=== PATIENT | female | born 1950 | race Caucasian/White ===

== ENCOUNTER 2017-02-17 19:48 | Emergency (ER) | payer OTHER ==
[2017-02-17 20:01] VITALS: BP 150/68; PULSE 70; TEMP 97.6; BMI 25.6
--- NOTE | 2017-02-17 21:01 | PDOC ---
History of Present Illness - General Chief Complaint: Pain Stated Complaint: SIDE PAIN Time Seen by Provider: 02/17/17 20:59 - History of Present Illness Initial Comments: 66 year old female presenting with history of HTN, left sided abdominal pain alternating with left sided back pain since yesterday afternoon. She describes the pain as a sharp 7/10 pain that either presents in her back or in her abdomen. Denies SOB, diaphoresis, nausea, vomiting, diarrhea, constipation, urinary symptoms. 02/17/17 21:43 Past History - Past Medical History Allergies/Adverse Reactions: Allergies Allergy/AdvReac Type Severity Reaction Status Date / Time No Known Allergies Allergy Verified 05/12/15 07:06 Home Medications: Ambulatory Orders Amlodipine Besylate 10 mg PO DAILY 05/12/15 Valsartan 80 mg PO DAILY 05/12/15 Aspirin [ASA -] 81 mg PO DAILY 02/17/17 Mag Hydrox/Al Hydrox/Simeth [Mylanta Suspension -] 30 ml PO Q6H PRN #1 bottle Anemia: No Asthma: No Cancer: No Cardiac Disorders: No CVA: No COPD: No CHF: No Dementia: No Diabetes: No GI Disorders: Yes (DIVERTICULOSIS 06/2013) Disorders: No HTN: Yes Hypercholesterolemia: No Liver Disease: No Seizures: No Thyroid Disease: No - Surgical History Abdominal Surgery: Yes (EMERGENCY 06/2013 [facility] PROCEDURE'S FOR ACUTE DIVERTICULOSIS) Appendectomy: No Cardiac Surgery: No Cholecystectomy: Yes GI Surgery: Yes (: Resection, colostomy bag placement and reversal) Lung Surgery: No Neurologic Surgery: No Orthopedic Surgery: No - Immunization History Immunization Up to Date: No - Suicide/Smoking/Psychosocial Hx Smoking History: Never smoked Have you smoked in the past 12 months: No Information on smoking cessation initiated: No Hx Alcohol Use: No Drug/Substance Use Hx: No Substance Use Type: None Hx Substance Use Treatment: No Review of Systems - Review of Systems Constitutional: No: Chills, Diaphoresis, Fever, Loss of Appetite HEENTM: No: Blurred Vision Respiratory: No: Cough, Shortness of Breath, SOB with Exertion, SOB at Rest, Productive cough Cardiac (ROS): No: Chest Pain, Edema, Irregular Heart Rate, Lightheadedness, Palpitations, Syncope, Chest Tightness ABD/GI: No: Constipated, Diarrhea, Difficulty Swallowing, Nausea : No: Burning, Dysuria, Discharge, Frequency Musculoskeletal: Yes: Back Pain Neurological: No: Headache, Numbness *Physical Exam - Vital Signs Last Vital Signs Temp Pulse Resp BP Pulse Ox 97.6 F 70 17 150/68 99 02/17/17 19:59 02/17/17 19:59 02/17/17 19:59 02/17/17 19:59 02/17/17 19:59 - Physical Exam General Appearance: Yes: Nourished, Appropriately Dressed. No: Apparent Distress HEENT: positive: EOMI, TRINITY, Normal Voice Neck: positive: Trachea midline, Normal Thyroid, Supple. negative: Tender, Rigid Respiratory/Chest: positive: Lungs Clear, Normal Breath Sounds. negative: Chest Tender, Respiratory Distress Cardiovascular: positive: Regular Rhythm, Regular Rate, S1, S2. negative: Edema , Murmur Gastrointestinal/Abdominal: positive: Normal Bowel Sounds, Flat, Soft. negative : Tender Musculoskeletal: positive: Normal Inspection, CVA Tenderness (Some tenderness to palpation in left CVA) Extremity: positive: Normal Inspection, Normal Range of Motion. negative: Tender Integumentary: positive: Normal Color, Dry, Warm Neurologic: positive: Fully Oriented, Alert, Normal Mood/Affect, Normal Response , Motor Strength 5/5 ED Treatment Course - LABORATORY CBC & Chemistry Diagram: 02/17/17 21:35 02/17/17 21:35 Medical Decision Making - Medical Decision Making 66 year old female with left sided abdominal pain and back pain. This is most concerning for diverticulitis vs. kidney stone given nature of the pain and previous history of diverticulitis (s/p hartmans and reverse gibson's). Will get CBC, CMP, EKG, UA, and CT abdomen pelvis. 02/17/17 23:04 Labs and imaging significant for chronic anemia and small amount of blood in her urine although no clear evidence of stone on the left side (side of pain). Regardless, patient's pain improved after GI cocktail (Pepcid, famotidine, Maalox, and viscous lidocaine) so will DC home with maalox and urinary stone precautions. 02/18/17 02:01 *DC/Admit/Observation/Transfer Diagnosis at time of Disposition: Abdominal pain - Discharge Dispostion Disposition: HOME Condition at time of disposition: Improved Admit: No - Prescriptions Prescriptions: Mag Hydrox/Al Hydrox/Simeth [Mylanta Suspension -] 30 ml PO Q6H PRN #1 bottle PRN Reason: abdominal pain - Referrals Referrals: Gabbie Chang [Primary Care Provider] - - Patient Instructions Printed Discharge Instructions: DI for Kidney Stones Additional Instructions: You were seen for abdominal pain that got better with maalox and famotidine. You may have a kidney stone as well but we weren't able to see it clearly. We do not think this is your diverticulitis. Please return to the ED if you have difficulty urinating or you have pain that is not able to be controlled with your home medications. Print Language: BOTSWANAN
[2017-02-17 21:28] LABS: URINE APPEARANCE CLEAR; URINE BILIRUBIN NEGATIVE (NEGATIVE); URINE BLOOD 2+ (NEGATIVE); URINE COLOR COLORLESS; URINE GLUCOSE (UA) NEGATIVE (NEGATIVE); URINE KETONE NEGATIVE (NEGATIVE); URINE LEUK ESTERASE 2+ (NEGATIVE); URINE NITRITE NEGATIVE (NEGATIVE); URINE PROTEIN NEGATIVE (NEGATIVE); URINE UROBILINOGEN NEGATIVE mg/dL (0.2-1.0)
[2017-02-17] MEDS ORDERED: ACETAMINOPHEN 1000 MG/100 ML VIAL (NON FORMULARY) IVPB ONE (21:34)
[2017-02-17 21:35] LABS: URINE BACTERIA RARE /hpf (NONE SEEN); URINE RBC 1 /hpf (0-3); URINE WBC 2 /hpf (3-5)
[2017-02-17 21:44] LABS: BASOPHIL 0.4 % (0-2.0); EOSINOPHIL 1.5 % (0-4.5); MCH 24.6 pg (25.7-33.7); MCHC 32.6 g/dl (32.0-36.0); MEAN CELL VOLUME 75.5 fl (80-96); MEAN PLT VOLUME 7.5 fl (7.5-11.1); NEUTROPHILS 48.3 % (42.8-82.8); PLATELET COUNT 251 K/MM3 (134-434); RDW 16.3 % (11.6-15.6); WHITE BLOOD COUNT 8.4 K/mm3 (4.0-10.0)
[2017-02-17] MEDS ORDERED: ACETAMINOPHEN INJECTION 100 ML IVPB ONE (21:45)
[2017-02-17 22:13] LABS: ALBUMIN 3.6 g/dl (3.4-5.0); ALK PHOS 119 U/L (45-117); ANION GAP 9 (8-16); BILIRUBIN,TOTAL 0.3 mg/dL (0.2-1.0); CALCIUM 8.8 mg/dL (8.5-10.1); CO2 27 mmol/L (21-32); CREATININE 0.8 mg/dL (0.55-1.02); GLUCOSE,RANDOM 101 mg/dL (74-106); SGOT/AST 15 U/L (15-37); SGPT/ALT 16 U/L (12-78); TOT PROT 8.3 g/dl (6.4-8.2)
--- NOTE | 2017-02-17 22:44 | PDOC ---
Attending Attestation - Resident Resident Name: Glenn Villa - ED Attending Attestation I have performed the following: I have examined & evaluated the patient, The case was reviewed & discussed with the resident, I agree w/resident's findings & plan, Exceptions are as noted - HPI HPI: 02/17/17 22:42 66-year-old female with history of perforated diverticulitis requiring resection and colostomy with subsequent reversal back in 2013, now presents with 1 day of persistent left upper quadrant and left flank discomfort, no other associated GI or or cardiopulmonary symptoms. No fevers or chills. Took 1 Advil today without relief, presents for evaluation. - Physicial Exam PE: 02/17/17 22:42 Vital signs normal, blood pressure 150/68 Well-appearing, no acute distress seated in stretcher Lungs are clear, skin is clear Positive left CVA discomfort to palpation, abdomen is otherwise soft/nontender/ nondistended without guarding or rebound - Medical Decision Making 02/17/17 22:43 Patient seen and evaluated with the resident. I agree with the overall evaluation, assessment, and management with the following summary of visit: 66-year-old female with history of diverticulitis but no known history of renal colic presents with left upper quadrant/left flank discomfort for one day. No other associated symptoms, findings isolated to the left flank. Question UTI/ pyelonephritis/renal colic, seems less likely consistent with diverticulitis but given the patient's history this is still on the differential. No evidence for cardiopulmonary etiology. Labs, urinalysis Chest x-ray, EKG, CT of the abdomen and pelvis IV Tylenol Reassess Heart Score/ECG Review #1 General ECG Interpretation: Sinus Rhythm, Normal Rate (68), Normal Intervals ( qtc 463), No acute ischemic changes
--- NOTE | 2017-02-18 09:14 | EKG ---
Test Reason : Blood Pressure : / mmHG Vent. Rate : 068 BPM Atrial Rate : 068 BPM P-R Int : 132 ms QRS Dur : 086 ms QT Int : 436 ms P-R-T Axes : 046 053 039 degrees QTc Int : 463 ms NORMAL SINUS RHYTHM WITH SINUS ARRHYTHMIA NORMAL ECG WHEN COMPARED WITH ECG OF 12-MAY-2015 07:50, NO SIGNIFICANT CHANGE WAS FOUND Confirmed by LUZ BAKER MD ([id number]) on 02/18/2017 9:14:01 AM Referred By: Confirmed By:LUZ BAKER MD
== END 2017-02-18 02:02 | disposition home or self-care (01) ==
LOC: JER 19:48
PROC: 3E033NZ Introduction of Analgesics, Hypnotics, Sedatives into Peripheral Vein, Percutaneous Approach (ICD-10-PCS; principal; 2017-02-17)
DX: R10.32 Left lower quadrant pain (principal); R10.12 Left upper quadrant pain; I10 Essential (primary) hypertension; Z79.82 Long term (current) use of aspirin
CPT/HCPCS: 36415; 71020-TC; 74176-TC; 80053; 81003; 81015; 83690; 85025; 87086; 93005; 93010; 99282-25

== ENCOUNTER 2018-07-02 09:41 | Emergency (ER) | payer OTHER ==
[2018-07-02 09:47] VITALS: TEMP 97.8; BMI 26.5
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
[2018-07-02] MEDS ORDERED: ONDANSETRON 4 MG/2 ML VIAL IVPUSH ONE (10:17)
[2018-07-02] MEDS ORDERED: SODIUM CHLORIDE 1,000 ML IV STA (10:17)
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
[2018-07-02] MEDS ORDERED: FAMOTIDINE 20 MG/50 ML IVPB 20 MG/50 ML MG IVPB ONE ×2 (10:18→11:11)
[2018-07-02] MEDS ORDERED: MAG HYDROX/AL HYDROX/SIMETH 30 ML UNIT-DOSE CUP PO ONE (10:18)
[2018-07-02 10:42] LABS: BASO % 0.8 % (0-2.0); EOS % 0.7 % (0-4.5); HEMATOCRIT 34.9 % (32.4-45.2); HEMOGLOBIN 12.1 GM/dL (10.7-15.3); MCH 27.3 pg (25.7-33.7); MCHC 34.6 g/dl (32.0-36.0); MEAN CELL VOLUME 78.9 fl (80-96); MEAN PLT VOLUME 8.3 fl (7.5-11.1); MONO % 5.7 % (3.8-10.2); NEUT % 60.8 % (42.8-82.8); PLATELET COUNT 257 K/MM3 (134-434); RBC 4.42 M/mm3 (3.60-5.2); RDW 15.3 % (11.6-15.6); WHITE BLOOD COUNT 6.1 K/mm3 (4.0-10.0)
[2018-07-02] MEDS ORDERED: MAG HYDROX/AL HYDROX/SIMETH 30 ML UNIT-DOSE CUP ONE (11:10)
[2018-07-02] MEDS ORDERED: ONDANSETRON 4 MG/2 ML VIAL ONE (11:10)
[2018-07-02 11:16] LABS: ALBUMIN 3.8 g/dl (3.4-5.0); ALK PHOS 98 U/L (45-117); ANION GAP 5 MMOL/L (8-16); BILIRUBIN,TOTAL 0.4 mg/dL (0.2-1); BLOOD UREA NITROGEN 19 mg/dL (7-18); CALCIUM 8.7 mg/dL (8.5-10.1); CHLORIDE 108 mmol/L (98-107); CO2 26 mmol/L (21-32); CREATININE 0.8 mg/dL (0.55-1.3); GLUCOSE,RANDOM 110 mg/dL (74-106); POTASSIUM 3.3 mmol/L (3.5-5.1); SGOT/AST 20 U/L (15-37); SGPT/ALT 18 U/L (13-61); SODIUM 138 mmol/L (136-145); TOT PROT 7.8 g/dl (6.4-8.2)
[2018-07-02] MEDS ORDERED: POTASSIUM CHLORIDE TABS 20 MEQ TABLET.ER (FP) PO ONE ×2 (11:17→11:36)
[2018-07-02 14:29] VITALS: BP 139/62; PULSE 65
--- NOTE | 2018-07-02 15:32 | EKG ---
Test Reason : Blood Pressure : / mmHG Vent. Rate : 068 BPM Atrial Rate : 068 BPM P-R Int : 140 ms QRS Dur : 088 ms QT Int : 414 ms P-R-T Axes : 058 065 056 degrees QTc Int : 440 ms NORMAL SINUS RHYTHM NORMAL ECG WHEN COMPARED WITH ECG OF 17-FEB-2017 22:10, NO SIGNIFICANT CHANGE WAS FOUND Confirmed by CLYDE RIDER MD ([id number]) on 07/02/2018 3:32:25 PM Referred By: Confirmed By:CLYDE RIDER MD
== END 2018-07-02 14:29 | disposition home or self-care (01) ==
LOC: JER 09:41
PROC: 3E033GC Introduction of Other Therapeutic Substance into Peripheral Vein, Percutaneous Approach (ICD-10-PCS; principal; 2018-07-02)
PROC: 3E0337Z Introduction of Electrolytic and Water Balance Substance into Peripheral Vein, Percutaneous Approach (ICD-10-PCS; 2018-07-02)
DX: R10.13 Epigastric pain (principal); K21.9 Gastro-esophageal reflux disease without esophagitis; I10 Essential (primary) hypertension
CPT/HCPCS: 36415; 71045-TC-FY; 80053; 82550; 84484; 85025; 93005; 93010; 96361; 96365; 96375; 99281-25; J7030